=== PATIENT | male | born 1940 | race Caucasian/White ===

== ENCOUNTER 2022-08-09 10:42 | Emergency (ER) | payer MEDICARE ==
[~2022-08-09] VITALS: Ht 172.7 cm; Wt 77.1 kg
[2022-08-09 10:47] VITALS: BP_SYST 142
[2022-08-09 11:21] LABS: BASOPHILS % (AUTO) 0.6 % (0.0-2.0); EOSINOPHILS # (AUTO) 0.3 K/uL (0.0-0.4); EOSINOPHILS % (AUTO) 4.5 % (0.0-4.0); HEMATOCRIT 41.3 % (36-54); HEMOGLOBIN 13.7 g/dL (14.0-18.0); LYMPHOCYTES # (AUTO) 2.1 K/uL (1.0-5.5); LYMPHOCYTES % (AUTO) 34.4 % (20.5-51.5); MEAN CORPUSCULAR HEMOGLOBIN 27 pg (27-31); MEAN CORPUSCULAR HGB CONC 33 % (32-36); MEAN CORPUSCULAR VOLUME 81 fL (79.0-98.0); MONOCYTES # (AUTO) 0.5 K/uL (0.0-1.0); MONOCYTES % (AUTO) 7.9 % (1.7-9.3); NEUTROPHILS # (AUTO) 3.1 K/uL (1.8-7.7); NEUTROPHILS % (AUTO) 52.6 % (40.0-70.0); PLATELET COUNT (AUTO) 218 K/uL (130-430); RED BLOOD CELL COUNT(AUTO) 5.09 MIL/uL (4.2-6.2); RED CELL DISTRIBUTION WIDTH 14.7 % (9.0-15.0)
[2022-08-09] MEDS ORDERED: NACL 0.9% 1,000 ML IV ONE (11:30)
[2022-08-09 11:34] LABS: ANION GAP 5 (5-15); CHLORIDE 101 mmol/L (98-107); CREATININE 1.49 mg/dL (0.55-1.30); GLUCOSE 263 mg/dL (70-99); UREA NITROGEN, BLOOD 21 mg/dL (8-21)
[2022-08-09 11:41] LABS: ALANINE AMINOTRANSFERASE 26 U/L (12-78); ALBUMIN 2.8 g/dL (3.4-4.8); ASPARTATE AMINOTRANSFERASE 19 U/L (10-37); TOTAL BILIRUBIN 0.4 mg/dL (0.0-1.0)
[2022-08-09] MEDS ORDERED: MULT-1089 PO (12:11)
[2022-08-09] MEDS ORDERED: POLY17PO4 PO (12:11)
[2022-08-09] MEDS ORDERED: MELA3TAB69 PO (12:11)
[2022-08-09] MEDS ORDERED: LATA7.5D BOTH EYES (12:11)
[2022-08-09] MEDS ORDERED: INSU100V9 SQ (12:11)
[2022-08-09] MEDS ORDERED: INSU100V7 SUBCUT (12:11)
[2022-08-09 13:27] LABS: BILIRUBIN,URINE NEGATIVE (NEGATIVE); BLOOD, URINE 2+ (NEGATIVE); COLOR,URINE YELLOW (YELLOW); GLUCOSE,URINE 2+ (NEGATIVE); KETONES,URINE NEGATIVE (NEGATIVE); LEUKOCYTE ESTERASE ,URINE NEGATIVE (NEGATIVE); NITRITE, URINE NEGATIVE (NEGATIVE); PROTEIN URINE NEGATIVE (NEGATIVE); UROBILINOGEN,URINE 0.2 (0.2-1.0)
[2022-08-09 13:30] LABS: CLARITY/URINE SLIGHTLY HAZY (CLEAR)
[2022-08-09 13:36] LABS: BACTERIA,URINE FEW /HPF (None Seen); WBC,URINE 0-3 /HPF (0-3)
[2022-08-09] MEDS ORDERED: CLOPIDOGREL BISULFATE 75 MG TABLET PO ONE (13:45)
[2022-08-09] MEDS ORDERED: ASPIRIN 81 MG TAB.CHEW PO ONE (13:45)
[2022-08-09 14:18] LABS: INR 1.1 (0.80-1.20)
[2022-08-09] MEDS ORDERED: CLOP75TA32 PO (15:19)
[2022-08-09] MEDS ORDERED: LIP40 PO (15:19)
[2022-08-09] MEDS ORDERED: TAMS-11 PO (15:19)
[2022-08-09] MEDS ORDERED: ASPI-859 PO (15:19)
[2022-08-09] MEDS ORDERED: LOSA25TA3 PO (15:19)
[2022-08-09] MEDS ORDERED: ATEN-41 PO (15:19)
[2022-08-09] MEDS ORDERED: DONE10TA44 PO (15:19)
[2022-08-09] MEDS ORDERED: iohexoL 350 mgI/mL, 100 ML INFUS..BTL IV ONE (15:56)
[2022-08-09 20:34] VITALS: BP_SYST 136
== END 2022-08-09 20:30 | disposition short-term general hospital (02) ==
LOC: SED 10:42
DX: I63.9 Cerebral infarction, unspecified (principal); I10 Essential (primary) hypertension; E11.9 Type 2 diabetes mellitus without complications; Z79.899 Other long term (current) drug therapy; Z20.822 Contact with and (suspected) exposure to COVID-19
CPT/HCPCS: 99285; 70496; 96360; 71045; 87426; 80053; 81000; 83880; 85025; 85610; 84484; 36415; 93005; 70498; 70450; 76376; Q9967; J7030

== ENCOUNTER 2022-09-07 11:52 | Emergency (ER) | payer MEDICARE ==
[~2022-09-07] VITALS: Ht 177.8 cm; Wt 81.6 kg
[~2022-09-07 11:52] MED LIST: ASPI-859 PO; ATEN-41 PO; CLOP75TA32 PO; DONE10TA44 PO; INSU100V7 SUBCUT; INSU100V9 SQ; LATA7.5D BOTH EYES; LIP40 PO; LOSA25TA3 PO; MELA3TAB69 PO; MULT-1089 PO; POLY17PO4 PO; TAMS-11 PO
--- NOTE | 2022-09-07 12:00 | NUR ---
ER at bedside examining patient.
--- NOTE | 2022-09-07 12:00 | NUR ---
Placed in room #1 . Placed on bus monitor, blood pressure machine and pulse oximeter. To gown for exam. Side rails up.
[2022-09-07 12:07] VITALS: BP_SYST 159
--- NOTE | 2022-09-07 12:17 | NUR ---
CHUY REQUESTED BY DR. SHORT. NOE COMPUTER IS AT BEDSIDE.
--- NOTE | 2022-09-07 12:20 | NUR ---
RECEIVED BIB ALS FROM HOME WITH CC OF CVA SYMPTOMS, LKW 2100, MILDLY HARD OF HEARING, VSS, NAD, ABLE TO ANSWER SIMPLE QUESTIONS. PT TO BE FURTHER ASSESSED WITH DISPOSITION OF PLAN OF CARE.
[2022-09-07 12:42] LABS: BASOPHILS % (AUTO) 0.7 % (0.0-2.0); EOSINOPHILS # (AUTO) 0.4 K/uL (0.0-0.4); EOSINOPHILS % (AUTO) 6.6 % (0.0-4.0); HEMATOCRIT 40.7 % (36-54); HEMOGLOBIN 13.6 g/dL (14.0-18.0); LYMPHOCYTES # (AUTO) 1.9 K/uL (1.0-5.5); LYMPHOCYTES % (AUTO) 30.1 % (20.5-51.5); MEAN CORPUSCULAR HEMOGLOBIN 27 pg (27-31); MEAN CORPUSCULAR HGB CONC 33 % (32-36); MEAN CORPUSCULAR VOLUME 81 fL (79.0-98.0); MONOCYTES # (AUTO) 0.5 K/uL (0.0-1.0); MONOCYTES % (AUTO) 8.4 % (1.7-9.3); NEUTROPHILS # (AUTO) 3.5 K/uL (1.8-7.7); NEUTROPHILS % (AUTO) 54.2 % (40.0-70.0); PLATELET COUNT (AUTO) 276 K/uL (130-430); RED BLOOD CELL COUNT(AUTO) 5.05 MIL/uL (4.2-6.2); RED CELL DISTRIBUTION WIDTH 14.4 % (9.0-15.0); WHITE BLOOD COUNT (AUTO) 6.5 K/uL (4.8-10.8)
--- NOTE | 2022-09-07 12:45 | NUR ---
TELE NEUROLOGIST ASSESSING PT.
[2022-09-07 12:56] LABS: ANION GAP 6 (5-15); CALCIUM 9.6 mg/dL (8.4-11.0); CHLORIDE 100 mmol/L (98-107); CREATININE 1.48 mg/dL (0.55-1.30); GLUCOSE 261 mg/dL (70-99); UREA NITROGEN, BLOOD 17 mg/dL (8-21)
[2022-09-07] MEDS: NACL 0.9% 1,000 ML IV ONE (12:59)
[2022-09-07 13:03] LABS: ALANINE AMINOTRANSFERASE 28 U/L (12-78); ALBUMIN 3.2 g/dL (3.4-4.8); ASPARTATE AMINOTRANSFERASE 15 U/L (10-37); TOTAL BILIRUBIN 0.4 mg/dL (0.0-1.0)
[2022-09-07 13:06] LABS: ALCOHOL, BLOOD < 3 mg/dL (<10)
--- NOTE | 2022-09-07 13:07 | NUR ---
MRSA AND COVID SWABBED SENT TO LAB
[2022-09-07 15:16] LABS: BILIRUBIN,URINE NEGATIVE (NEGATIVE); BLOOD, URINE NEGATIVE (NEGATIVE); CLARITY/URINE CLEAR (CLEAR); COLOR,URINE YELLOW (YELLOW); GLUCOSE,URINE 1+ (NEGATIVE); KETONES,URINE NEGATIVE (NEGATIVE); LEUKOCYTE ESTERASE ,URINE NEGATIVE (NEGATIVE); NITRITE, URINE NEGATIVE (NEGATIVE); PROTEIN URINE NEGATIVE (NEGATIVE); UROBILINOGEN,URINE 0.2 (0.2-1.0)
[2022-09-07 15:37] LABS: BARBITURATE, URINE NEGATIVE (NEG <=200); BENZODIAZEPINE, URINE NEGATIVE (NEG <=150); CANNABINOID, URINE NEGATIVE (NEG <=50); COCAINE, URINE NEGATIVE (NEG <=150); METHAMPHETAMINES SCREEN,URINE NEGATIVE (NEG <=500); OPIATE, URINE NEGATIVE (NEG <=100); PHENCYCLIDINE SCREEN,URINE NEGATIVE (NEG <=25); UR TRICYCLIC ANTIDEPRESSANTS NEGATIVE (NEG <=300); URINE AMPHETAMINE NEGATIVE (NEG <=500); URINE METHADONE NEGATIVE (NEG <=200); URINE OXYCODONE SCREEN NEGATIVE (NEG <=100); URINE PROPOXYPHENE SCREEN NEGATIVE (NEG <=300)
--- NOTE | 2022-09-07 16:12 | NUR ---
DR. GOMEZ, [facility] DOC, CALLED BACK TO SPEAK TO DR. EATON REGARDING PT STATUS.
--- NOTE | 2022-09-07 18:55 | NUR ---
[facility] RN CALLED PROVIDING TRANSFER INFORMATION: PT TO TRANSFER BY [facility] AT 1945 TO [facility], ROOM 5002, UNDER DR. MCGEE, DIRECT ADMIT. PT TO TRANSFER WITH COPY OF CHART, LABS, CDS
--- NOTE | 2022-09-07 19:15 | NUR ---
TELEPHONE FOR REPORT FOR TRANSFER IS [phone]
--- NOTE | 2022-09-07 19:36 | NUR ---
Report received from MONA Brady.
--- NOTE | 2022-09-07 19:50 | NUR ---
Report called to MONA Harrell at [facility] Room 5002.
--- NOTE | 2022-09-07 20:40 | NUR ---
[facility] at bedside. Report given.
--- NOTE | 2022-09-07 20:55 | NUR ---
Patient transferred to EMS [facility] and departed to EMS enroute to [facility] Room 5002 in stable condition.
[2022-09-07 20:57] VITALS: BP_SYST 158
== END 2022-09-07 20:55 | disposition short-term general hospital (02) ==
LOC: SED 11:52
DX: G93.41 Metabolic encephalopathy (principal); R53.1 Weakness; E11.9 Type 2 diabetes mellitus without complications; I11.0 Hypertensive heart disease with heart failure; I50.9 Heart failure, unspecified; Z86.73 Personal history of transient ischemic attack (TIA), and cerebral infarction without residual deficits; Z86.19 Personal history of other infectious and parasitic diseases; Z79.899 Other long term (current) drug therapy; Z20.822 Contact with and (suspected) exposure to COVID-19
CPT/HCPCS: 99285; 96360; 70450; 71045; 87426; 80307; 80053; 82140; 85025; 87081; 84484; 36415; 76376; 83605; 81003; 87040; G0482; J7030